=== PATIENT | male | born 1980 | race Hispanic/Latino ===

== ENCOUNTER → 2024-07-03 12:55 | Outpatient (REF) | payer SELFPAY | LOC: HWRAD 12:55 | PROVIDERS: ATTENDING PHYSICIAN Physician Assistant | DX: E78.5 Hyperlipidemia, unspecified (principal) | CPT/HCPCS: 75571 ==

== ENCOUNTER 2024-12-11 06:19 | Day surgery (SDC) | payer OTHER, SELFPAY | END 2024-12-11 15:02 | disposition home or self-care (01) | LOC: GI 06:19 | PROVIDERS: ATTENDING PHYSICIAN Internal Medicine Gastroenterology | DX: Z12.11 Encounter for screening for malignant neoplasm of colon (principal); K64.8 Other hemorrhoids | CPT/HCPCS: G0121 ==